=== PATIENT | female | born 1980 | race American Indian/Alaskan Native ===

== ENCOUNTER 2018-03-16 09:55 | Inpatient (IN) | payer BC, MEDICAID ==
--- NOTE | 2018-03-13 20:10 | History and Physical Report ---
History of Present Illness Date of examination: 03/11/18 Date of admission: 03/16/17 Chief complaint: here for c /s with BLT History of present illness: Pt here for repeat c/s with BTL. All risk, benefits and alternatives were d/w pt and all questions were addressed and answered. EDC Calculations LMP: 03/22/2018 EDC Confirmation: 03/22/2018 Gestational Age: 7 2/7 weeks Past History : 2 Term Births: 1 Premature Births: 0 Living Children: 1 Para: 1 Mult. Births: 0 Prev : 1 Prev. attempt? none Aborta: 0 Elect. Ab: 0 Spont. Ab: 0 Ectopics: 0 # 1 Delivery date: 08/18/2012 Weeks Gestation: 39 Delivery type: Anesthesia type: spinal Delivery location: [place] Sex: Female weight: 7-5 Name: Latisha Comments: Hypertesion scheduled C/S Past Medical History: G E R D Hyperlipidemia Hyperthyroidism Past Surgical History: (2012) Family History Summary: Other family member - Has No Family History of Ovarvian Cancer - Entered On: 08/05/2017 Other family member - Has No Family History of Colon Cancer - Entered On: 08/05/2017 Other family member - Has No Family History of Brain Cancer - Entered On: 08/05/2017 Other family member - Has Family History of Prostate Cancer - Entered On: Other family member - Has Family History of Hypertension - Entered On: 08/05/2017 Social History: Marital Status: Children: 1 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 of genital herpes: yes Partner hx. of genital herpes: no Genetic History ADVANCED MATERNAL AGE Congenital Heart Defect: Mom: no Dad: no Arturo Disease: Mom: no Dad: no Thalassemia Mom: no Dad: no Neural Tube Defect Mom: no Dad: no Down's Syndrome Mom: no Dad: no Larry-Sachs Mom: no Dad: no Sickle Cell Disease/Trait Mom: no Dad: no Hemophilia Mom: no Dad: no Muscular Dystrophy Mom: no Dad: no Cystic Fibrosis Mom: no Dad: no [place] Chorea Mom: no Dad: no Mental Retardation Mom: no Dad: no Fragile X Mom: no Dad: no Other Genetic/Chromosomal Disorder Mom: no Dad: no Child w/other defect Mom: no Dad: no Enviromental Exposures Xray Exposure: no Medication, drug, or alcohol use since LMP: yes Chemical/Other Exposure: no Exposure to Cat Liter: no Active Medications: PLUS 27-1 MG ORAL TABLET ( VIT-FE FUMARATE-FA) 1 po daily IBUPROFEN 800 MG ORAL TABLET (IBUPROFEN) 1 po TID (PRN) TRIAMTERENE-HCTZ 37.5-25 MG ORAL CAPSULE (TRIAMTERENE-HCTZ) SERTRALINE HCL 20 MG/ML ORAL CONCENTRATE (SERTRALINE HCL) VALACYCLOVIR HCL 500 MG ORAL TABLET (VALACYCLOVIR HCL) 1 tab po bid x3days as needed OMEPRAZOLE 40 MG ORAL CAPSULE DELAYED RELEASE (OMEPRAZOLE) Current Allergies: No known allergies Past History Past Medical History: hypertension, other (see hpi) Past Surgical History: section, other (see hpi) 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 Negative: distention, tenderness, guarding Genitourinary (Female): Positive: other (deferred) Extremities: Positive: edema (2+dependent edema) Deep Tendon Reflex Grade: Normal +2 Results All other labs normal. Assessment and Plan - Patient Problems (1) 39 weeks gestation of Status: Acute (2) Hypertension affecting in third trimester Status: Acute (3) Previous section complicating Status: Acute Plan to address problem: -admit and prepare for c/s -consents signed and placed on the chart (4) Sterilization Status: Acute Plan to address problem: btl papers signed consents signed and placed on the chart
[2018-03-16] MEDS ORDERED: PEPCID IV NR (10:30)
[2018-03-16] MEDS ORDERED: REGLAN IV NR (10:30)
[2018-03-16] MEDS ORDERED: ANCEF/STERILE WATER 2 GM/20 ML 2 GM/20 ML SYRINGE IV NR (10:30)
[2018-03-16] MEDS ORDERED: BICITRA PO NR (10:30)
[2018-03-16] MEDS ORDERED: PITOCin/NS 20 UNIT/1000ML DRIP 20 UNITS/1,000 ML BAG IV SCH (10:30)
[2018-03-16] MEDS: LACTATED RINGERS 1,000 ML IV NR ×2 (10:45→11:19)
[2018-03-16 10:50] LABS: Basophils % (Auto) 0.5 % (0.0-1.8); Eosinophils # (Auto) 0.1 K/mm3 (0.0-0.4); Eosinophils % (Auto) 1.7 % (0.0-4.3); Hematocrit 33.5 % (30.3-42.9); Hemoglobin 10.8 gm/dl (10.1-14.3); Lymphocytes # (Auto) 1.6 K/mm3 (1.2-5.4); Lymphocytes % (Auto) 22.5 % (13.4-35.0); Mean Corpuscular HGB Conc 32 % (30-34); Mean Corpuscular Volume 78 fl (79-97); Monocytes # (Auto) 0.5 K/mm3 (0.0-0.8); Monocytes % (Auto) 6.6 % (0.0-7.3); Platelet Count 305 K/mm3 (140-440); Red Cell Distribution Width 15.1 % (13.2-15.2)
--- NOTE | 2018-03-16 10:59 | Anesthesia Day of Surgery ---
Anesthesia Day of Surgery - Day of Surgery Patient Examined: Yes Patient H&P Reviewed: Yes Patient is NPO: Yes
--- NOTE | 2018-03-16 10:59 | Anesthesia Consultation ---
Anesthesia Consult and Med Hx Date of service: 03/16/18 - Airway Anesthetic Teeth Evaluation: Good ROM Head & Neck: Adequate Mental/Hyoid Distance: Adequate Mallampati Class: Class III Intubation Access Assessment: Possibly Difficult - Pre-Operative Health Status ASA Pre-Surgery Classification: ASA3 Proposed Anesthetic Plan: Epidural, Spinal - Pulmonary Hx Asthma: No - Cardiovascular System Hx Hypertension: Yes (chronic HTN) - Central Nervous System Hx Seizures: No Hx Psychiatric Problems: No - Endocrine Hx Renal Disease: No Hx Hypothyroidism: No Hx Hyperthyroidism: No - Hematic Hx Anemia: Yes Hx Sickle Cell Disease: No - Other Systems Hx Alcohol Use: No Hx Obesity: Yes (BMI 50.5)
[2018-03-16] MEDS ORDERED: SODIUM CHLORIDE FLUSH SYRINGE 10 ML IV PRN (11:00)
[2018-03-16] MEDS ORDERED: NARCAN 0.4 MG/1 ML IV PRN (11:00)
[2018-03-16] MEDS ORDERED: BENADRYL IV PRN (11:00)
[2018-03-16] MEDS ORDERED: DILAUDID IV PRN (11:30)
[2018-03-16] MEDS ORDERED: PHENERGAN PO PRN (11:30)
[2018-03-16] MEDS ORDERED: PHENERGAN PR PRN (11:30)
[2018-03-16] MEDS ORDERED: ZOFRAN IV PRN (11:30)
[2018-03-16] MEDS ORDERED: NEO SYNEPHRINE ONE (12:00)
[2018-03-16] MEDS ORDERED: XYLOCAINE MPF 2% ONE ×2 (12:30)
[2018-03-16] MEDS ORDERED: NACL 0.9% 100 ML ONE (12:30)
[2018-03-16] MEDS ORDERED: ASTRAMORPH PF 10MG/10ML ONE (12:41)
--- NOTE | 2018-03-16 13:41 | Operative Report ---
Operative Report Operative Report: Date of procedure: 03/16/2018 Pre-operative diagnosis: 39 weeks gestation Advanced maternal age Chronic hypertension Morbid obesity Desires permanent sterilization Post-operative diagnosis: Same +4+ meconium Procedure name(s): Repeat low transverse section via Pfannenstiel skin incision Bilateral tubal ligation via modified Vian method Surgeon: Dr. Balderas It Application Architect: CASSIDY Anesthesia: Combined spinal epidural EBL: 700 mL Urine output: 100 mL of clear urine out at the end of procedure Fluids: 1600 mL Findings: Liveborn female infant weight 6 lbs. 8 oz. Apgars of 8 and 9 at one and 5 minutes Stricture of the lower uterine segment making it difficult for delivery of the infant initially Grossly normal fallopian tubes and ovaries bilaterally Indications: Patient presents for scheduled repeat section with bilateral tubal ligation. all risk benefits and alternatives were discussed with the patient. Consents were signed and placed on the chart. Procedure: Patient was taking to the operating room. Patient was then prepped and draped in sterile fashion after anesthesia was found to be adequate. A low transverse skin incision was made with the scalpel through previous incisional scar and carried down to the underlying layer of fascia with the Bovie. The fascia was then incised in the midline and this incision was extended bilaterally with the Bovie. The superior aspect of the fascia was grasped with Meghana clamps tented upward and dissected off of the anterior rectus muscles with the scalpel. In similar fashion the inferior aspect of the fascia was grasped with Meghana clamps tented upward and dissected off of the anterior rectus muscles. The rectus muscles were then sharply divided in the midline. The peritoneum was identified and entered into sharply. The extra large Juan Antonio retractor was placed The bladder blade was placed. The bladder flap was was not created due to adhesions of the bladder to the lower uterine segment. A lower transverse uterine incision was made with the scalpel and extended bilaterally with the dissection. Artificial rupture of membranes was performed yielding thick particulate meconium fluid. The 's head was then delivered atraumatically. There was some difficulty with delivery of the infant's head due to stricture of the lower uterine segment around the infant's head. The anterior shoulder and rest of delivered without difficulty. The umbilical cord was clamped x2. The cord was cut. The infant was then placed in sterile bassinet. The placenta was manually extracted in its entirety and was noted to be meconium-stained. The uterus was exteriorized and cleared of all clots and debris. The uterine incision was closed using 0 Vicryl in a running locking fashion. A second imbricating layer of the same suture was then created. Attention was then turned to the fallopian tubes. A portion of the tube was grasp with the Malaika suture ligated 2 and transected with excellent hemostasis noted. The stomach bilaterally. Segments of left and right fallopian tube were passed off for pathology. The posterior cul-de-sac was copiously irrigated. The uterus was returned to the abdomen. The gutters were also irrigated. The anterior rectus muscles were reapproximated using 3-0 Vicryl. The anterior rectus fascia was reapproximated using 0 Vicryl in a running fashion. The subcuticular fat was reapproximated using 2-0 Vicryl in a running fashion. The skin was reapproximated with 4-0 Monocryl in a subcuticular stitch. The patient tolerated the procedure well. Sponge lap and needle counts were all correct x3. Patient was taken to the recovery room awake and in stable condition.
[2018-03-16] MEDS ORDERED: TUCKS PAD TP PRN (13:53)
[2018-03-16] MEDS ORDERED: LANSINOH TP PRN (13:53)
[2018-03-16] MEDS: TORADOL IV PRN (16:16)
[2018-03-16] MEDS: NORCO 5/325 PO PRN (17:57)
[2018-03-16] MEDS ORDERED: SUBLIMAZE IV ONE (18:19)
--- NOTE | 2018-03-16 18:22 | Event Note ---
Date: 03/16/18 Called regarding pain management for pt. I advised RN to consult anesthesia team as it is only a few hours post op. States was told pain would not be managed as pt is out of recovery and on the floor. Will give po pain meds at this time and IV fentaly order as a one time dose for breakthrough pain should po meds not be effective or she has emesis after taking them.
[2018-03-16] MEDS: ANCEF/NS 1 GM/50 ML 1 GM/50 ML BAG IV SCH (19:59)
[2018-03-16] MEDS: D5LR 1,000 ML IV SCH (19:59)
[2018-03-16] MEDS: NORMODYNE PO SCH (23:33)
[2018-03-17] MEDS: D5LR 1,000 ML IV SCH ×3 (00:07→17:02)
[2018-03-17 01:46] LABS: Hematocrit 31.7 % (30.3-42.9); Hemoglobin 10.2 gm/dl (10.1-14.3)
[2018-03-17] MEDS: ANCEF/NS 1 GM/50 ML 1 GM/50 ML BAG IV SCH (03:58)
[2018-03-17] MEDS: MYLICON PO PRN ×2 (04:03→10:21)
[2018-03-17] MEDS ORDERED: BOOSTRIX IM ONE (06:00)
[2018-03-17] MEDS: NORCO 5/325 PO PRN ×4 (06:05→22:04)
[2018-03-17] MEDS: TORADOL IV PRN (06:05)
[2018-03-17 06:34] LABS: Hematocrit 30.8 % (30.3-42.9); Hemoglobin 10.1 gm/dl (10.1-14.3)
--- NOTE | 2018-03-17 06:48 | Progress Note ---
Assessment and Plan - Patient Problems (1) delivery delivered Onset Date: ~03/16/18 Current Visit: Yes Status: Acute Plan to address problem: Pt sitting up in bed FOB tending to NB. BP 150-130/80-60 Afebrile Dressing D&I Urine output 45cc/hr over the previous 12 hours. H&H stable Pt denies any s/sx of anemia. Stable s/p section with tubal P: continue pathway Advance aas tolerated. Will maintain govea cath for now. Pt maybe OOB to chair for diet Pt asking to start her Zoloft. ordered. (2) Depression affecting , Current Visit: Yes Status: Acute Plan to address problem: Zoloft 50mg po start today Subjective - Subjective Date of service: 03/17/18 ("When can I eat?") Principal diagnosis: Day # 1 S/P Repeat c/s with tubal Patient reports: pain well controlled, other (urine output 45cc/hr) [place]: doing well Objective - Vital Signs Latest vital signs: Vital Signs Temp Pulse Resp BP BP Pulse Ox 03/17/18 05:24 98.5 F 78 18 141/62 94 03/16/18 23:33 98.4 F 71 18 154/85 99 03/16/18 19:55 98.7 F 71 18 125/68 98 03/16/18 17:30 97.4 F L 66 18 134/59 03/16/18 14:55 97.7 F 76 19 142/89 03/16/18 14:40 97.7 F 130/53 03/16/18 14:30 64 15 135/73 100 03/16/18 14:00 65 14 111/50 97 03/16/18 13:45 59 L 12 100/49 100 03/16/18 13:40 60 13 101/42 99 03/16/18 13:35 62 12 97/45 98 03/16/18 13:30 97.8 F 61 9 L 113/34 98 03/16/18 10:28 78 133/61 03/16/18 10:25 98.5 F 78 16 133/61 Intake and Output 03/16/18 03/16/18 03/17/18 14:59 22:59 06:59 Intake Total 2666.1 410 776.667 Output Total 100 540 Balance 2566.1 410 236.667 Intake: IV 2666.1 50 516.667 ANCEF/NS 1 GM/50 ML 1 gm 50 In 50 ml @ 100 mls/hr IV Q8H BELKIS Rx#:[id number] D5lr 1,000 ml @ 125 mls/ 516.667 hr IV DIRECT BELKIS Rx#: [id number] Lactated Ringers 1,000 ml 566.1 @ 2250 mls/hr IV PREOP NR Rx#:[id number] Oral 360 Intake, Free Water 240 Other 20 Output: Urine 100 540 Indwelling Catheter 540 Other: Intake, Other Source Saline Solution Total, Intake Amount 360 20 Total, Output Amount 80 Weight 314 lb Patient Weight 03/17/18 06:59 Weight 314 lb - Exam Breasts: Present: normal Cardiovascular: Present: Regular rate Lungs: Present: Clear to auscultation, Normal air movement Abdomen: Present: normal appearance, soft, normal bowel sounds, other (pt has not passed gas as of this time) Vulva: both: normal Uterus: Present: normal, fundal height at umbilicus Extremities: Present: normal, edema Deep Tendon Reflex Grade: Normal +2 Incision: Present: normal, dry, intact, dressed (small area of lower dressing stained with lochia) - Labs Labs: Abnormal lab results 03/16/18 Range/Units 10:38 MCV 78 L (79-97) fl MCH 25 L (28-32) pg
--- NOTE | 2018-03-17 08:16 | Event Note ---
Date: 03/17/18 Patient resting in bed, no complaints UO and BP's noted, ~200mL in govea bag now, shelley, will continue IVF hydration and govea for now, monitor BP's closely and check PIH labs. Plan of care discussed with patient and family, she voiced understanding.
[2018-03-17 08:36] LABS: Bacteria,Urine 1+ /HPF (Negative); Bilirubin,Urine NEG (Negative); Blood,Urine SM (Negative); Color,Urine Yellow (Yellow); Mucus,Urine FEW /HPF; Protein,Urine <15 mg/dL mg/dL (Negative); Urobilinogen,Urine < 2.0 mg/dL (<2.0)
[2018-03-17 08:36] LABS: Hematocrit 30.9 % (30.3-42.9); Hemoglobin 9.9 gm/dl (10.1-14.3); Mean Corpuscular HGB Conc 32 % (30-34); Mean Corpuscular Volume 78 fl (79-97); Platelet Count 280 K/mm3 (140-440); Red Blood Count 3.95 M/mm3 (3.65-5.03)
[2018-03-17 08:53] LABS: Alanine Aminotransferase 13 units/L (7-56); Uric Acid 6.2 mg/dL (3.5-7.6)
[2018-03-17] MEDS: FEOSOL PO SCH (10:00)
[2018-03-17] MEDS: NORMODYNE PO SCH ×2 (10:20→22:04)
[2018-03-17] MEDS: IBUPROFEN PO PRN ×2 (10:21→17:00)
[2018-03-17] MEDS: ZOLOFT PO SCH (10:23)
[2018-03-17] MEDS: MILK OF MAGNESIA PO PRN (20:28)
[2018-03-18] MEDS: IBUPROFEN PO PRN ×3 (00:22→16:00)
[2018-03-18] MEDS: NORCO 5/325 PO PRN ×3 (02:14→16:00)
[2018-03-18] MEDS ORDERED: BOOSTRIX IM ONE (04:00)
--- NOTE | 2018-03-18 08:19 | Progress Note ---
Assessment and Plan patient resting in bed, no complaints. reports + flatus and good appetite. H&H stable. b/p well controlled on labetalol 200mg PO BID. b/p's ranging 119/47 to 153/57. pt denies BURDICK, visual changes or epigastric pain. Encouraged increased activity as tolerated. Continue current management and close monitoring of blood pressure. Anticipate d/c home tomorrow. - Patient Problems (1) delivery delivered Onset Date: ~03/16/18 Current Visit: Yes Status: Acute (2) Hypertension affecting in third trimester Current Visit: No Status: Acute Subjective - Subjective Date of service: 03/18/18 Principal diagnosis: Day # 2 S/P Repeat c/s with tubal; elevated b/p Patient reports: appetite normal, voiding normally, pain well controlled, flatus, ambulating normally, no dizzy ambulation, no nauseated : doing well, bottle feeding Objective - Vital Signs Latest vital signs: Vital Signs Temp Pulse Resp BP BP Pulse Ox 03/18/18 05:26 97.6 F 76 18 124/51 97 03/18/18 01:51 98.0 F 72 18 119/47 93 03/17/18 22:20 137/51 03/17/18 22:04 63 153/57 03/17/18 20:10 98.7 F 61 18 129/52 03/17/18 16:24 98.6 F 66 20 145/55 98 03/17/18 15:55 97.6 F 63 20 150/50 98 03/17/18 11:59 97.6 F 62 16 120/59 96 03/17/18 10:20 66 149/70 03/17/18 10:16 98.2 F 65 16 149/70 97 Intake and Output 03/17/18 03/18/18 03/18/18 23:59 07:59 15:59 Intake Total 1535 Output Total 1450 Balance 85 Intake: IV 875 D5lr 1,000 ml @ 125 mls/ 875 hr IV DIRECT BELKIS Rx#: [id number] Oral 360 Other 300 Output: Urine 1450 Void 1450 Other: Total, Intake Amount 300 Total, Output Amount 350 - Exam Breasts: Present: normal Cardiovascular: Present: Regular rate Lungs: Present: Clear to auscultation, Normal air movement Abdomen: Present: normal appearance, soft Vulva: both: normal Uterus: Present: normal, firm, fundal height at umbilicus Extremities: Present: normal Incision: Present: normal, dry, intact - Labs Labs: Abnormal lab results 03/17/18 03/17/18 Range/Units 06:00 08:08 Hgb 9.9 L (10.1-14.3) gm/dl MCV 78 L (79-97) fl MCH 25 L (28-32) pg Lactate Dehydrogenase 188 H (91-180) units/L
[2018-03-18] MEDS: MILK OF MAGNESIA PO PRN ×2 (11:20→21:44)
[2018-03-18] MEDS: FEOSOL PO SCH (11:21)
[2018-03-18] MEDS: NORMODYNE PO SCH ×2 (11:21→21:44)
[2018-03-18] MEDS ORDERED: AFLURIA QUAD 2018-2019 SYRINGE IM ONE (12:00)
[2018-03-19] MEDS: NORCO 5/325 PO PRN ×2 (01:17→11:21)
[2018-03-19] MEDS: IBUPROFEN PO PRN ×2 (01:17→11:22)
--- NOTE | 2018-03-19 08:37 | Discharge Summary ---
Providers - Providers Date of Admission: 03/16/18 09:55 Date of discharge: 03/19/18 (pt desires d/c) Attending physician: BROWN TINOCO Primary care physician: MEGAN CORTES Hospitalization Reason for admission: section Procedure: bilateral tubal ligation, repeat low transverse Episiotomy: none Laceration: none Incision: normal, dry, intact Other procedures: none complications: other (Htn Labetalol 200mg po BID) Discharge diagnosis: IUP at term delivered [place] baby: female Hospital course: uncomplicated section chronic Htn: labetalol 200mg PO BID Pt OOB for AM care No c/o voiced BP 150-140/70-60 other VSS FF below umb Lochia scant Incision D&I H&H stable Asymptomatic Doing well s/p repeat section P: d/c today with instructions RTO 1 week postop and BP check Call with BURDICK, blurred vision, chest pain Take Labetalol as prescribed Will continue Zoloft Condition at discharge: Good Disposition: DC-01 TO HOME OR SELFCARE - Discharge Diagnoses (1) delivery delivered Status: Acute Comment: RTO 1 week postop (2) Depression affecting , Status: Acute Comment: continue zoloft (3) Hypertension affecting in third trimester Status: Acute Comment: continue labetalol Plan - Discharge Medications Prescriptions: Docusate Sodium [Colace] 100 mg PO BID PRN #60 capsule PRN Reason: Constipation Ferrous Sulfate 325 mg PO DAILY #30 tablet. Ibuprofen 800 mg PO Q6HR #30 tablet Labetalol [Normodyne TAB] 200 mg PO BID #60 tablet oxyCODONE /ACETAMINOPHEN [Percocet 5/325] 1 tab PO Q4HR #30 tab - Provider Discharge Summary Activity: routine, no sex for 6 weeks, no heavy lifting 4 weeks, no strenuous exercise Diet: routine Instructions: routine Additional instructions: [] Smoking cessation referral if applicable(refer to patient education folder for contact #) [] Refer to [facility] Booklet Call your doctor immediately for: * Fever > 100.5 * Heavy vaginal bleeding ( >1 pad per hour) * Severe persistent headache * Shortness of breath * Reddened, hot, painful area to leg or breast * Drainage or odor from incision. * Keep incision clean and dry at all times and follow doctor's instructions regarding bathing/showering - Follow up plan Follow up: MEGAN CORTES JR, MD [Primary Care Provider] - 7 Days FADI CAMACHO CNM [Advanced Practice Nurse] - 03/25/18 (Congratulations! Please keep your postoperative visit as scheduled for Wednesday. Please call [phone] with headache unrelieved with Tylenol, blurred vision, chest pain. Take all medications as prescribed. Call with concerns.)
[2018-03-19] MEDS: NORMODYNE PO SCH (10:11)
[2018-03-19] MEDS: FEOSOL PO SCH (10:12)
[2018-03-19] MEDS: ZOLOFT PO SCH (10:13)
[2018-03-19 13:26] VITALS: BP 127/56
== END 2018-03-19 12:15 | disposition home or self-care (01) | DRG 784 ==
LOC: APU 09:55 → OB 16:02
PROVIDERS: ADMIT Obstetrics & Gynecology; ATTEND Obstetrics & Gynecology
PROC: 10D00Z1 Extraction of Products of Conception, Low, Open Approach (ICD-10-PCS; principal; 2018-03-16)
PROC: 0UB70ZZ Excision of Bilateral Fallopian Tubes, Open Approach (ICD-10-PCS; 2018-03-16)
DX: O34.211 Maternal care for low transverse scar from previous cesarean delivery (principal); O10.92 Unspecified pre-existing hypertension complicating childbirth; O99.344 Other mental disorders complicating childbirth; F32.9 Major depressive disorder, single episode, unspecified; K21.9 Gastro-esophageal reflux disease without esophagitis; E66.01 Morbid (severe) obesity due to excess calories; O99.284 Endocrine, nutritional and metabolic diseases complicating childbirth; E05.90 Thyrotoxicosis, unspecified without thyrotoxic crisis or storm; O99.214 Obesity complicating childbirth; Z37.0 Single live birth; Z71.3 Dietary counseling and surveillance; Z82.49 Family history of ischemic heart disease and other diseases of the circulatory system; Z80.42 Family history of malignant neoplasm of prostate; Z3A.38 38 weeks gestation of pregnancy
CPT/HCPCS: 36415; 81001; 82565; 83615; 84450; 84460; 84550; 85014; 85018; 85025; 85027; 86850; 86900; 86901; 88302; 88307; 90471; 90686; 90715; G0378; A6250; J0690; J1885; J2274; J2370; J2590; J2765; J7120; J7121

== ENCOUNTER 2019-05-10 11:16 | Outpatient (CLI) | payer BC ==
--- NOTE | 2019-05-10 14:03 | Mammography Report ---
DIGITAL SCREENING MAMMOGRAM WITH CAD, 05/10/2019 INDICATION: Routine screening mammography. TECHNIQUE: Digital bilateral 2D mammography was obtained in the craniocaudal and mediolateral obliq ue projections. This examination was interpreted with the benefit of Computer-Aided Detection analysi s. COMPARISON: Available. This is a baseline mammogram. FINDINGS: Breast Density: There are scattered areas of fibroglandular density. There is no evidence of dominant mass, suspicious calcifications or architectural distortion in eithe r breast. IMPRESSION: No mammographic evidence of malignancy. Follow up recommendation: Routine yearly BI-RADS Category 1: Negative. A "normal" or negative report should not discourage follow up or biopsy of a clinically significant f inding. A written summary of these findings will be mailed to the patient. The patient will be entered into a mammography reporting system which will generate a reminder letter for the patient's next appointmen t at the appropriate interval. The [employer] recommends yearly mammograms starting at age 40 and continuing as l jay as a woman is in good health. Breast MRI is recommended for women with an approximate 20-25% or greater lifetime risk of breast cancer, including women with a strong family history of breast or ova octavio cancer or who have been treated for Hodgkin's disease. Signer Name: Saul Douglas MD Signed: 05/10/2019 1:59 PM Workstation Name: [id number]
== END 2019-05-10 11:17 | disposition home or self-care (01) ==
LOC: MAMMO 11:16
PROVIDERS: ATTEND Obstetrics & Gynecology
DX: Z12.31 Encounter for screening mammogram for malignant neoplasm of breast (principal)
CPT/HCPCS: 77067